=== PATIENT | female | born 1970 | race African-American/Black ===

== ENCOUNTER 2019-12-03 03:43 | Emergency (ER) | payer OTHER ==
--- NOTE | 2019-12-03 07:30 | RAD ---
RIGHT HAND 3 VIEWS: INDICATION: History of right hand injury. COMPARISON: None. FINDINGS: No acute fracture or subluxation is evident. No radiopaque foreign body is noted. IMPRESSION: No acute osseous abnormality. POS: [facility]
== END 2019-12-03 04:36 | disposition home or self-care (01) ==
LOC: MADERS 03:43
DX: S63.601A Unspecified sprain of right thumb, initial encounter (principal); Y04.0XXA Assault by unarmed brawl or fight, initial encounter